=== PATIENT | male | born 1965 | race Caucasian/White ===

== ENCOUNTER 2018-03-01 00:32 | Emergency (ER) | payer MEDICAID, OTHER ==
[~2018-03-01] VITALS: Ht 177.8 cm; Wt 110.0 kg
[2018-03-01 01:28] VITALS: BP 136/76
== END 2018-03-01 01:33 ==
LOC: ER 00:33
DX: G89.29 Other chronic pain (principal); M54.2 Cervicalgia; F15.10 Other stimulant abuse, uncomplicated; V89.2XXA Person injured in unspecified motor-vehicle accident, traffic, initial encounter; Y93.89 Activity, other specified; Y92.89 Other specified places as the place of occurrence of the external cause; Y99.8 Other external cause status
CPT/HCPCS: 71045; 72040; 99284

== ENCOUNTER 2020-03-12 02:32 | Emergency (ER) | payer MEDICAID ==
[~2020-03-12] VITALS: Ht 177.8 cm; Wt 88.6 kg
[2020-03-12] MEDS ORDERED: CLIN-97 PO (02:45)
[2020-03-12 03:06] VITALS: BP 124/67
== END 2020-03-12 03:10 | disposition home or self-care (01) ==
LOC: ER 02:33
DX: T81.30XA Disruption of wound, unspecified, initial encounter (principal); G89.29 Other chronic pain; F12.90 Cannabis use, unspecified, uncomplicated; F15.90 Other stimulant use, unspecified, uncomplicated; Z98.890 Other specified postprocedural states; Z79.899 Other long term (current) drug therapy; Y83.8 Other surgical procedures as the cause of abnormal reaction of the patient, or of later complication, without mention of misadventure at the time of the procedure; Y92.89 Other specified places as the place of occurrence of the external cause
CPT/HCPCS: 99283

== ENCOUNTER 2020-03-20 07:14 | Day surgery (SDC) | payer MEDICAID ==
[~2020-03-20] VITALS: Ht 177.8 cm; Wt 90.3 kg
[2020-03-20] VITALS (13 sets, daily range): BP systolic 104–134; BP diastolic 53–76
[~2020-03-20 07:14] MED LIST: CLIN150C8 PO; famotidine 20mg tablet PO ONE; ringers solution, lacted 1,000 ML IV SCH
[2020-03-20 08:58] LABS: BASOPHILS % (AUTO) 0.4 % (0-1); EOSINOPHILS # (AUTO) 0.2 X10'3 (0-0.9); EOSINOPHILS % (AUTO) 3.6 % (0-6); LYMPHOCYTES # (AUTO) 0.9 X10'3 (1.1-4.8); LYMPHOCYTES % (AUTO) 13.7 % (21-51); MEAN CORPUSCULAR HEMOGLOBIN 30.6 PG (27.0-31.0); MEAN CORPUSCULAR HGB CONC 32.9 g/dL (33.0-36.5); MEAN CORPUSCULAR VOLUME 93.1 FL (78-98); MEAN PLATELET VOLUME 7.3 FL (7.4-10.4); MONOCYTES % (AUTO) 15.1 % (2-12); NEUTROPHILS # (AUTO) 4.6 X10'3 (1.8-7.7); NEUTROPHILS % (AUTO) 67.2 % (42-75); PRE OP HEMOGLOBIN 12.8 g/dL (14.0-17.9); PRE OP PLATELET COUNT 363 X10'3 (140-440); RED BLOOD COUNT 4.19 X10'6 (4.70-6.10); RED CELL DISTRIBUTION WIDTH 13.1 % (11.5-14.5)
[2020-03-20 09:20] LABS: ALBUMIN 2.7 G/DL (3.4-5.0); ALBUMIN/GLOBULIN RATIO 0.6 (1.1-1.5); ALKALINE PHOSPHATASE 88 IU/L (46-116); BLOOD UREA NITROGEN 14 MG/DL (7-18); BUN/CREATININE RATIO 14.6 (5.4-32.0); CALCIUM 8.5 MG/DL (8.5-10.1); CHLORIDE 105 MMOL/L (99-107); CREATININE 0.96 MG/DL (0.60-1.10); PRE OP ALT 27 U/L (30-65); PRE OP ANION GAP 1 (8-16); PRE OP AST 24 U/L (10-37); PRE OP BILIRUB, TOTAL 0.2 MG/DL (0.0-1.0); PRE OP GLUCOSE 101 MG/DL (70-104); PRE OP POTASSIUM 4.2 MMOL/L (3.4-5.1); PRE OP SODIUM 137 MMOL/L (135-145); TOTAL CARBON DIOXIDE 31.1 MMOL/L (24-32); eGFR 82 ML/MIN
[2020-03-20 09:31] LABS: NUCLEATED RED BLOOD CELLS 104 /100WBC (0-0); PLATELET ESTIMATE NORMAL; TOTAL CELLS COUNTED 100
[2020-03-20] MEDS ORDERED: ringers solution, lacted 1,000 ML IV SCH (10:19)
[2020-03-20] MEDS ORDERED: fentaNYL/PF 50MCG/1 ML 2ML syringe IV PRN ×2 (10:20)
[2020-03-20] MEDS ORDERED: hydrALAZINE 20mg/ml inj. IV PRN (10:20)
[2020-03-20] MEDS ORDERED: ondansetron/PF 4mg/2ml inj IV PRN (10:20)
[2020-03-20] MEDS ORDERED: morphine 2 MG/ML inj. syringe IV PRN (10:20)
[2020-03-20] MEDS ORDERED: labetalol 20mg/4ml (5mg/ml) syringe IV PRN (10:20)
[2020-03-20] MEDS ORDERED: morphine 4 MG/ML inj SYRINge IV PRN (10:20)
[2020-03-20] MEDS ORDERED: ceFAZolin 1000mg inj ONE (11:02)
[2020-03-20] MEDS ORDERED: BUPIVAcaine/PF 2.5 mg/ml (0.25%) 30ml vial ONE (11:04)
[2020-03-20] MEDS ORDERED: sevoflurane 250ml liquid IH ONE (11:23)
[2020-03-20] MEDS ORDERED: fentaNYL/PF 50MCG/1 ML 2ML syringe ONE (11:30)
[2020-03-20] MEDS ORDERED: LIDOcaine 2% (20mg/ml) 5ml vial ONE (11:32)
[2020-03-20] MEDS ORDERED: propofol inj 20 ML IV ONE (11:32)
[2020-03-20] MEDS ORDERED: dexamethasone sod phosphate 4mg/ml inj. ONE ×2 (11:36→11:37)
[2020-03-20] MEDS ORDERED: ondansetron/PF 4mg/2ml inj ONE (11:36)
--- NOTE | 2020-03-20 12:07 | NUR ---
Received from OR via [facility], accompanied by Anesthesiologist DR ESTRADA and report given by Anesthesiologist. PT VERY DROWSY, NO S/S OF DISTRESS/DISCOMFORT, LEFT HAND/WRIST W ELPIDIO WRAP COVERING INCISION, WOUND VAC SETTINGS 125MMHG LCS W/SMALL AMT OF S/S DRAINAGE IN TUBING. Addendum: 03/20/20 at 1230 by Denise Trivedi RN Amended: Links added.
[2020-03-20] MEDS ORDERED: traMADol 50MG tablet PO ONE ×2 (13:40→13:45)
--- NOTE | 2020-03-20 14:07 | NUR ---
D/C INSTRUCTIONS ALONG W/WOUND VAC INSTRUCTIONS GIVEN AND GONE OVER W/PT WHO VERBALIZED UNDERSTANDING, PT D/CD TO HOME VIA W/C TO PRIVATE VEHICLE W/O INCIDENT. Addendum: 03/20/20 at 1430 by Denise Trivedi RN Amended: Links added.
== END 2020-03-20 14:07 | disposition home or self-care (01) ==
LOC: PAS 07:14
PROVIDERS: ATTEND Orthopaedic Surgery
DX: T81.31XA Disruption of external operation (surgical) wound, not elsewhere classified, initial encounter (principal); Z87.891 Personal history of nicotine dependence; Y83.8 Other surgical procedures as the cause of abnormal reaction of the patient, or of later complication, without mention of misadventure at the time of the procedure; Y92.89 Other specified places as the place of occurrence of the external cause; Z79.899 Other long term (current) drug therapy; M25.532 Pain in left wrist
CPT/HCPCS: 25109; 36415; 80053; 85025; 87070; 87077; 87186; 93005; J0690; J1100; J2001; J2270; J2405; J2704; J3010; J3490; J7120; A4618; A6449; A6550; A7000

== ENCOUNTER 2020-03-22 10:30 | Outpatient (CLI) | payer MEDICAID ==
[~2020-03-22 10:30] MED LIST changes: -famotidine 20mg tablet PO ONE; -ringers solution, lacted 1,000 ML IV SCH
== END 2020-03-22 12:00 | disposition home or self-care (01) ==
LOC: WOUND CARE 10:30 → EDSTATUS 10:40 → WOUND CARE 12:00
PROVIDERS: ATTEND Nurse Practitioner
DX: T81.31XA Disruption of external operation (surgical) wound, not elsewhere classified, initial encounter (principal); G89.29 Other chronic pain; F12.90 Cannabis use, unspecified, uncomplicated; F15.90 Other stimulant use, unspecified, uncomplicated; Z87.891 Personal history of nicotine dependence; Z79.899 Other long term (current) drug therapy; Z98.890 Other specified postprocedural states; Y83.8 Other surgical procedures as the cause of abnormal reaction of the patient, or of later complication, without mention of misadventure at the time of the procedure; Y92.89 Other specified places as the place of occurrence of the external cause
CPT/HCPCS: 97605; G0463

== ENCOUNTER 2020-03-25 11:40 | Outpatient (CLI) | payer MEDICAID | END 2020-03-25 12:25 | disposition home or self-care (01) | LOC: EDSTATUS 11:40 → WOUND CARE 11:40 | PROVIDERS: ATTEND Nurse Practitioner | DX: T81.31XD Disruption of external operation (surgical) wound, not elsewhere classified, subsequent encounter (principal); G89.29 Other chronic pain; F12.90 Cannabis use, unspecified, uncomplicated; F15.90 Other stimulant use, unspecified, uncomplicated; Z87.891 Personal history of nicotine dependence; Z79.899 Other long term (current) drug therapy; Z98.890 Other specified postprocedural states; Y83.8 Other surgical procedures as the cause of abnormal reaction of the patient, or of later complication, without mention of misadventure at the time of the procedure | CPT/HCPCS: 97605 ==

== ENCOUNTER 2020-03-27 10:42 | Day surgery (SDC) | payer MEDICAID ==
[2020-03-27] MEDS ORDERED: LIDOcaine 2% 5ml jelly ONE (10:53)
== END 2020-03-27 11:36 | disposition home or self-care (01) ==
LOC: WOUND CARE 10:42
PROVIDERS: ATTEND Nurse Practitioner
DX: T81.31XD Disruption of external operation (surgical) wound, not elsewhere classified, subsequent encounter (principal); G89.29 Other chronic pain; F12.90 Cannabis use, unspecified, uncomplicated; F15.90 Other stimulant use, unspecified, uncomplicated; Z87.891 Personal history of nicotine dependence; Z79.899 Other long term (current) drug therapy; Z98.890 Other specified postprocedural states; Y83.8 Other surgical procedures as the cause of abnormal reaction of the patient, or of later complication, without mention of misadventure at the time of the procedure
CPT/HCPCS: 97597

== ENCOUNTER 2020-03-29 10:25 | Outpatient (CLI) | payer MEDICAID ==
[2020-03-29] MEDS ORDERED: LIDOcaine 2% 5ml jelly ONE (10:37)
== END 2020-03-29 11:29 | disposition home or self-care (01) ==
LOC: WOUND CARE 10:25
PROVIDERS: ATTEND Nurse Practitioner
DX: T81.31XD Disruption of external operation (surgical) wound, not elsewhere classified, subsequent encounter (principal); G89.29 Other chronic pain; F12.90 Cannabis use, unspecified, uncomplicated; F15.90 Other stimulant use, unspecified, uncomplicated; Z87.891 Personal history of nicotine dependence; Z79.899 Other long term (current) drug therapy; Z98.890 Other specified postprocedural states; Y83.8 Other surgical procedures as the cause of abnormal reaction of the patient, or of later complication, without mention of misadventure at the time of the procedure
CPT/HCPCS: 97605

== ENCOUNTER 2020-04-01 10:29 | Outpatient (CLI) | payer MEDICAID ==
[2020-04-01] MEDS ORDERED: LIDOcaine 2% 5ml jelly ONE (10:54)
== END 2020-04-01 11:25 | disposition home or self-care (01) ==
LOC: WOUND CARE 10:29
PROVIDERS: ATTEND Nurse Practitioner
DX: T81.31XD Disruption of external operation (surgical) wound, not elsewhere classified, subsequent encounter (principal); L98.493 Non-pressure chronic ulcer of skin of other sites with necrosis of muscle; G89.29 Other chronic pain; F12.90 Cannabis use, unspecified, uncomplicated; F15.90 Other stimulant use, unspecified, uncomplicated; Z87.891 Personal history of nicotine dependence; Z79.899 Other long term (current) drug therapy; Z98.890 Other specified postprocedural states; Y83.8 Other surgical procedures as the cause of abnormal reaction of the patient, or of later complication, without mention of misadventure at the time of the procedure
CPT/HCPCS: 97597; 97605

== ENCOUNTER 2020-04-03 10:15 | Day surgery (SDC) | payer MEDICAID ==
[2020-04-03] MEDS ORDERED: LIDOcaine 2% 5ml jelly ONE (10:27)
== END 2020-04-03 11:35 | disposition home or self-care (01) ==
LOC: WOUND CARE 10:15
PROVIDERS: ATTEND Nurse Practitioner
DX: T81.31XD Disruption of external operation (surgical) wound, not elsewhere classified, subsequent encounter (principal); L98.493 Non-pressure chronic ulcer of skin of other sites with necrosis of muscle; G89.29 Other chronic pain; F12.90 Cannabis use, unspecified, uncomplicated; F15.90 Other stimulant use, unspecified, uncomplicated; Z87.891 Personal history of nicotine dependence; Z79.899 Other long term (current) drug therapy; Z98.890 Other specified postprocedural states; Y83.8 Other surgical procedures as the cause of abnormal reaction of the patient, or of later complication, without mention of misadventure at the time of the procedure
CPT/HCPCS: 36415; 87635; 97597

== ENCOUNTER 2020-04-05 10:39 | Day surgery (SDC) | payer MEDICAID ==
[2020-04-05] MEDS ORDERED: LIDOcaine 2% 5ml jelly ONE (11:01)
[2020-04-05] MEDS ORDERED: CLIN150C99 PO (13:36)
[2020-04-05] MEDS ORDERED: CEPH500C5 PO (13:36)
== END 2020-04-05 12:13 | disposition home or self-care (01) ==
LOC: WOUND CARE 10:39
PROVIDERS: ATTEND Nurse Practitioner
DX: T81.31XD Disruption of external operation (surgical) wound, not elsewhere classified, subsequent encounter (principal); L98.493 Non-pressure chronic ulcer of skin of other sites with necrosis of muscle; G89.29 Other chronic pain; F12.90 Cannabis use, unspecified, uncomplicated; F15.90 Other stimulant use, unspecified, uncomplicated; Z87.891 Personal history of nicotine dependence; Z79.899 Other long term (current) drug therapy; Z98.890 Other specified postprocedural states; Y83.8 Other surgical procedures as the cause of abnormal reaction of the patient, or of later complication, without mention of misadventure at the time of the procedure
CPT/HCPCS: 97597

== ENCOUNTER 2020-04-10 10:57 | Day surgery (SDC) | payer MEDICAID ==
[2020-04-10] VITALS (10 sets, daily range): BP systolic 106–138; BP diastolic 52–77
[~2020-04-10] VITALS: Ht 177.8 cm; Wt 88.5 kg
[~2020-04-10 10:57] MED LIST changes: +CEPH500C5 PO; -CLIN150C8 PO; +CLIN150C99 PO; +famotidine 20mg tablet PO ONE; +ringers solution, lacted 1,000 ML IV SCH
[2020-04-10] MEDS ORDERED: LIDOcaine 1% (10mg/ml) 2ml vial ONE (12:09)
[2020-04-10 12:15] LABS: BASOPHILS % (AUTO) 0.4 % (0-1); EOSINOPHILS # (AUTO) 0.3 X10'3 (0-0.9); EOSINOPHILS % (AUTO) 3.6 % (0-6); LYMPHOCYTES # (AUTO) 1.2 X10'3 (1.1-4.8); LYMPHOCYTES % (AUTO) 13.4 % (21-51); MEAN CORPUSCULAR HEMOGLOBIN 30.1 PG (27.0-31.0); MEAN CORPUSCULAR HGB CONC 32.9 g/dL (33.0-36.5); MEAN CORPUSCULAR VOLUME 91.4 FL (78-98); MEAN PLATELET VOLUME 7.7 FL (7.4-10.4); MONOCYTES # (AUTO) 0.6 X10'3 (0-0.9); NEUTROPHILS # (AUTO) 6.8 X10'3 (1.8-7.7); NEUTROPHILS % (AUTO) 75.6 % (42-75); PRE OP HEMATOCRIT 38.1 % (42.0-52.0); PRE OP HEMOGLOBIN 12.5 g/dL (14.0-17.9); PRE OP PLATELET COUNT 321 X10'3 (140-440); RED BLOOD COUNT 4.16 X10'6 (4.70-6.10); RED CELL DISTRIBUTION WIDTH 13.6 % (11.5-14.5)
[2020-04-10 12:26] LABS: ALBUMIN 2.9 G/DL (3.4-5.0); ALBUMIN/GLOBULIN RATIO 0.6 (1.1-1.5); ALKALINE PHOSPHATASE 89 IU/L (46-116); BLOOD UREA NITROGEN 22 MG/DL (7-18); BUN/CREATININE RATIO 23.9 (5.4-32.0); CALCIUM 8.4 MG/DL (8.5-10.1); CHLORIDE 105 MMOL/L (99-107); CREATININE 0.92 MG/DL (0.60-1.10); PRE OP ALT 18 U/L (30-65); PRE OP ANION GAP 5 (8-16); PRE OP AST 22 U/L (10-37); PRE OP BILIRUB, TOTAL 0.3 MG/DL (0.0-1.0); PRE OP GLUCOSE 95 MG/DL (70-104); PRE OP POTASSIUM 4.3 MMOL/L (3.4-5.1); PRE OP SODIUM 139 MMOL/L (135-145); TOTAL CARBON DIOXIDE 29.5 MMOL/L (24-32); TOTAL PROTEIN 7.5 G/DL (6.4-8.2); eGFR 86 ML/MIN
[2020-04-10] MEDS ORDERED: ceFAZolin 1000mg inj ONE (16:54)
[2020-04-10] MEDS ORDERED: sevoflurane 250ml liquid IH ONE (17:02)
[2020-04-10] MEDS ORDERED: fentaNYL/PF 50MCG/1 ML 2ML syringe ONE (17:06)
[2020-04-10] MEDS ORDERED: propofol inj 20 ML IV ONE (17:06)
[2020-04-10] MEDS ORDERED: midazolam 2 mg/2 ml injection ONE (17:06)
[2020-04-10] MEDS ORDERED: ringers solution, lacted 1,000 ML IV SCH (17:24)
[2020-04-10] MEDS ORDERED: ondansetron/PF 4mg/2ml inj IV PRN (17:25)
[2020-04-10] MEDS ORDERED: morphine 4 MG/ML inj SYRINge IV PRN (17:25)
[2020-04-10] MEDS ORDERED: meperidine/PF 25mg/ml syringe IV PRN ×3 (17:25)
[2020-04-10] MEDS ORDERED: proCHLORperazine 10 MG/2 ml inj IV PRN (17:25)
[2020-04-10] MEDS ORDERED: morphine 2 MG/ML inj. syringe IV PRN (17:25)
[2020-04-10] MEDS ORDERED: bacitracin 15gm ointment TP ONE (17:33)
--- NOTE | 2020-04-10 17:48 | NUR ---
Received from OR via [facility], accompanied by Anesthesiologist DR LOUIS and report given by Anesthesiologist. PT VERY DROWSY, NO S/S OF DISTRESS/DISCOMFORT, LEFT HAND W/ELPIDIO WRAP COVERING INCISION CDI, FINGERS PWD, MANAGER CRITICAL CARE 1-2 SECONDS. Addendum: 04/10/20 at 1805 by Denise Trivedi RN Amended: Links added.
--- NOTE | 2020-04-10 19:48 | NUR ---
D/C INSTRUCTIONS GIVEN AND GONE OVER W/PT WHO VERBALIZED UNDERSTANDING, PT D/CD TO HOME VIA W/C TO PRIVATE VEHICLE W/O INCIDENT. Addendum: 04/10/20 at 2002 by Denise Trivedi RN Amended: Links added.
== END 2020-04-10 19:48 | disposition home or self-care (01) ==
LOC: PRE-OP 10:57
PROVIDERS: ATTEND Orthopaedic Surgery
DX: T81.31XA Disruption of external operation (surgical) wound, not elsewhere classified, initial encounter (principal); Z87.891 Personal history of nicotine dependence; Z98.890 Other specified postprocedural states; Y83.8 Other surgical procedures as the cause of abnormal reaction of the patient, or of later complication, without mention of misadventure at the time of the procedure; Y92.89 Other specified places as the place of occurrence of the external cause
CPT/HCPCS: 12020; 36415; 80053; 85025; J0690; J2001; J2250; J2704; J3010; 76937; A4618; A6258; A6449; A7000; J7120

== ENCOUNTER 2020-04-17 10:35 | Day surgery (SDC) | payer MEDICAID ==
[~2020-04-17 10:35] MED LIST changes: -famotidine 20mg tablet PO ONE; -ringers solution, lacted 1,000 ML IV SCH
== END 2020-04-17 11:45 | disposition home or self-care (01) ==
LOC: WOUND CARE 10:35
PROVIDERS: ATTEND Nurse Practitioner
DX: T81.31XD Disruption of external operation (surgical) wound, not elsewhere classified, subsequent encounter (principal); L98.493 Non-pressure chronic ulcer of skin of other sites with necrosis of muscle; G89.29 Other chronic pain; F12.90 Cannabis use, unspecified, uncomplicated; F15.90 Other stimulant use, unspecified, uncomplicated; Z87.891 Personal history of nicotine dependence; Z79.899 Other long term (current) drug therapy; Z98.890 Other specified postprocedural states; Y83.8 Other surgical procedures as the cause of abnormal reaction of the patient, or of later complication, without mention of misadventure at the time of the procedure
CPT/HCPCS: 87070; 87075; 87102; 97597

== ENCOUNTER 2020-04-25 11:42 | Day surgery (SDC) | payer MEDICAID ==
[2020-04-25] MEDS ORDERED: LIDOcaine 2% 5ml jelly ONE (12:06)
== END 2020-04-25 12:45 | disposition home or self-care (01) ==
LOC: WOUND CARE 11:42
PROVIDERS: ATTEND Nurse Practitioner
DX: T81.31XD Disruption of external operation (surgical) wound, not elsewhere classified, subsequent encounter (principal); L98.493 Non-pressure chronic ulcer of skin of other sites with necrosis of muscle; G89.29 Other chronic pain; F12.90 Cannabis use, unspecified, uncomplicated; F15.90 Other stimulant use, unspecified, uncomplicated; Z87.891 Personal history of nicotine dependence; Z79.899 Other long term (current) drug therapy; Z98.890 Other specified postprocedural states; Y83.8 Other surgical procedures as the cause of abnormal reaction of the patient, or of later complication, without mention of misadventure at the time of the procedure
CPT/HCPCS: 97597

== ENCOUNTER 2023-05-21 10:52 | Emergency (ER) | payer MEDICAID ==
[~2023-05-21] VITALS: Ht 177.8 cm; Wt 115.9 kg
[~2023-05-21 10:52] MED LIST changes: +CEPH-585 PO; -CEPH500C5 PO
[2023-05-21 10:53] VITALS: BP 170/78
[2023-05-21] MEDS ORDERED: bacitracin 15gm ointment TP ONE (11:10)
[2023-05-21] MEDS ORDERED: CEPH-585 PO (11:29)
== END 2023-05-21 11:35 | disposition home or self-care (01) ==
LOC: ER 10:52
DX: L03.113 Cellulitis of right upper limb (principal); L03.114 Cellulitis of left upper limb; R22.33 Localized swelling, mass and lump, upper limb, bilateral; F12.90 Cannabis use, unspecified, uncomplicated; F15.20 Other stimulant dependence, uncomplicated
CPT/HCPCS: 99283; A6449

== ENCOUNTER 2023-06-09 21:18 | Emergency (ER) | payer MEDICAID ==
[~2023-06-09] VITALS: Ht 177.8 cm; Wt 140.0 kg
[2023-06-09 21:41] VITALS: BP 190/80
== END 2023-06-10 00:36 | disposition left against medical advice (07) ==
LOC: ER 21:19
DX: R20.0 Anesthesia of skin (principal); Z53.21 Procedure and treatment not carried out due to patient leaving prior to being seen by health care provider
CPT/HCPCS: 99281

== ENCOUNTER 2024-07-31 23:50 | Emergency (ER) | payer MEDICAID ==
[~2024-07-31] VITALS: Ht 177.8 cm; Wt 113.6 kg
[2024-08-01 00:06] LABS: BASOPHILS # (AUTO) 0.1 X10'3 (0-0.2); BASOPHILS % (AUTO) 0.7 % (0-1); EOSINOPHILS # (AUTO) 0.5 X10'3 (0-0.9); HEMATOCRIT 49.5 % (42.0-52.0); HEMOGLOBIN 16.4 g/dl (14.0-17.9); LYMPHOCYTES # (AUTO) 2.3 X10'3 (1.1-4.8); LYMPHOCYTES % (AUTO) 29.4 % (21-51); MEAN CORPUSCULAR HEMOGLOBIN 31.6 PG (27.0-31.0); MEAN CORPUSCULAR HGB CONC 33.2 g/dL (33.0-36.5); MEAN CORPUSCULAR VOLUME 95.2 FL (78-98); MEAN PLATELET VOLUME 7.9 FL (7.4-10.4); MONOCYTES # (AUTO) 0.8 X10'3 (0-0.9); MONOCYTES % (AUTO) 10.6 % (2-12); NEUTROPHILS # (AUTO) 4.2 X10'3 (1.8-7.7); NEUTROPHILS % (AUTO) 53.3 % (42-75); PLATELET COUNT 229 X10'3 (140-440); RED CELL DISTRIBUTION WIDTH 13.2 % (11.5-14.5); WHITE BLOOD COUNT 7.8 X10'3 (4.5-11.0)
[2024-08-01 00:34] LABS: ALBUMIN 3.7 G/DL (3.4-5.0); ANION GAP 8 (8-16); BLOOD UREA NITROGEN 24 MG/DL (7-18); BUN/CREATININE RATIO 20.3 (10.0-20.0); CALCIUM 9.2 MG/DL (8.5-10.1); CHLORIDE 106 MMOL/L (99-107); CREATININE 1.18 MG/DL (0.60-1.10); GLUCOSE 107 MG/DL (70-104); PRO BRAIN NATRIURETIC PEPTIDE 46 PG/ML (0-125); SODIUM 140 MMOL/L (135-145); TOTAL CARBON DIOXIDE 25.7 MMOL/L (24-32); eCRCL 71 ML/MIN; eGFR 64 ML/MIN
[2024-08-01 00:37] LABS: POTASSIUM 4.5 MMOL/L (3.5-5.1)
[2024-08-01 01:25] LABS: ALANINE AMINOTRANSFERASE 43 U/L (12-78); ALKALINE PHOSPHATASE 85 IU/L (46-116); ASPARTATE AMINO TRANSFERASE 35 U/L (10-37); BILIRUBIN,DIRECT 0.1 MG/DL (0-0.3); BILIRUBIN,TOTAL 0.3 MG/DL (0.1-1.0); TOTAL PROTEIN 7.5 G/DL (6.4-8.2)
[2024-08-01 02:46] LABS: ETHANOL < 10 MG/DL (<10)
[2024-08-01] MEDS: aspirin 81mg tab.chew PO ONE (03:06)
[2024-08-01 03:11] VITALS: BP 171/90; TEMP 98.3
[2024-08-01] MEDS: ipratropium/albuterol 3ml nebule NEB ONE (03:14)
[2024-08-01 03:17] VITALS: PULSE 72; RESP 22; O2SAT 94
[2024-08-01 03:20] VITALS: PULSE 69; RESP 18
== END 2024-08-01 03:32 | disposition home or self-care (01) ==
LOC: ER 23:51
DX: R00.2 Palpitations (principal); E78.00 Pure hypercholesterolemia, unspecified; I10 Essential (primary) hypertension; F12.90 Cannabis use, unspecified, uncomplicated; F15.90 Other stimulant use, unspecified, uncomplicated; Z79.2 Long term (current) use of antibiotics
CPT/HCPCS: 36415; 71045; 80048; 80076; 80320; 83880; 84484; 85025; 93005; 94640; 94760; 99285